=== PATIENT | female | born 1985 | race Caucasian/White ===

== ENCOUNTER 2025-01-16 13:20 | Outpatient (REF) | payer OTHER, SELFPAY ==
[2025-01-16 14:54] LABS: HCT 40.6 % (36.0-46.0); HGB 13.6 g/dL (11.2-15.7); MCH 28.5 pg (27.0-33.0); MCHC 33.5 % (32.0-36.0); MCV 85 fL (80-95); MPV 9.8 fL (8.0-11.0); Platelet Count 243 10^3/uL (130-400); RBC 4.78 10^6/uL (3.93-5.22); RDW 12.9 % (11.7-14.6); RDW-SD 40.6 fL; WBC 5.08 10^3/uL (4.4-10.8)
[2025-01-16 15:18] LABS: ALT 17 U/L (14-59); AST 19 U/L (15-37); Albumin 4.3 g/dL (3.4-5.0); Alkaline Phosphatase 51 U/L (46-116); Anion Gap 9.9 mmol/L (3-11); BUN 3 mg/dL (7-18); Bilirubin, Total 0.3 mg/dL (0.2-1.0); CO2 26.1 mmol/L (21.0-32.0); Calcium 9.2 mg/dL (8.5-10.1); Calculated LDL 100 mg/dL (<100); Chloride 100 mmol/L (98-107); Cholesterol 191 mg/dL (<200); Estimated GFR 129.84 (mL/min/1.73m2); Glucose 88 mg/dL (74-106); HDL Cholesterol 78 mg/dL (>or=50); Iron 57 ug/dL (50-170); Potassium 4.2 mmol/L (3.5-5.1); Sodium 136 mmol/L (136-145); Total Iron Binding Capacity 305 ug/dL (250-450); Total Protein 7.6 g/dL (6.4-8.2); Transferrin Sat 19 % (15-50); Triglyceride 65 mg/dL (<150)
== END 2025-01-16 13:21 | disposition home or self-care (01) ==
LOC: NCHCN 13:20
PROVIDERS: Visit Provider Nurse Practitioner Family
DX: Z00.00 Encounter for general adult medical examination without abnormal findings (principal); N92.0 Excessive and frequent menstruation with regular cycle
CPT/HCPCS: 80053; 80061; 85027; 83540; 83550